=== PATIENT | male | born 1955 | race African-American/Black ===

== ENCOUNTER → 2024-03-24 13:47 | Outpatient (REF) | payer MEDICARE, OTHER, SELFPAY | LOC: RCS 13:47 | PROVIDERS: ATTENDING PHYSICIAN Family Medicine | DX: I10 Essential (primary) hypertension (principal) | CPT/HCPCS: 93005 ==

== ENCOUNTER → 2024-04-12 10:52 | Outpatient (REF) | payer OTHER, MEDICARE, SELFPAY | LOC: RAD 10:52 | PROVIDERS: ATTENDING PHYSICIAN Family Medicine | DX: R89.9 Unspecified abnormal finding in specimens from other organs, systems and tissues (principal) | CPT/HCPCS: 76536 ==

== ENCOUNTER 2024-06-11 00:35 | Emergency (ER) | payer OTHER, MEDICARE, SELFPAY ==
[2024-06-11 00:43] VITALS: BP 140/69
[2024-06-11 01:39] LABS: COVID-19 Antigen Negative (Negative)
--- NOTE | 2024-06-11 02:07 | ED.GENMED ---
History of Present Illness
General
Chief Complaint: Cold/Flu/URI Symptoms
Source: patient
Time Seen by Provider: 06/11/24 01:25
History of Present Illness
History of Present Illness:
This is a 68-year-old male who presents with fever and cough. Tylenol given prior to arrival. Patient arrives from [facility] house works reported that there is an influenza outbreak. On my evaluation patient reports a cough and bodyaches
Past History
Past History
ED Past Medical History: HTN, IDDM and Psychiatric (Bipolar disorder, schizophrenia)
Social History
Tobacco: Non-smoker
Alcohol: None
Drug: None
Living: senior living
Employment: Not employed
Family History
Family History: Unable to obtain (non verbal)
Phy Exam
Physical Exam
Physical Exam:
CONSTITUTIONAL Patient alert and oriented to person, place and time. Well-appearing. Vital signs reviewed.
HEAD atraumatic, normocephalic.
EYES eyelids normal to inspection, Extraocular muscles intact, Conjunctiva normal, Sclera normal.
NECK normal range of motion, Trachea midline, no jugular venous distention.
RESPIRATORY CHEST No respiratory distress noted, Chest expansion equal, Bilateral breath sounds clear.
CARDIOVASCULAR regular rate and rhythm, Heart sounds normal.
ABDOMEN abdomen nontender, Bowel sounds normal. No distention.
BACK normal inspection, no obvious deformities
UPPER EXTREMITY range of motion normal, Motor strength normal, no cyanosis, no edema.
LOWER EXTREMITY range of motion normal, Motor strength normal, no cyanosis, no edema.
NEURO Speech normal, No focal motor deficits, Cranial Nerves intact to screening exam.
SKIN skin warm, dry, and normal in color.
Course
Orders/Labs/Results
Orders:
Orders
06/11/24 01:16
COVID-19 Antigen Urgent
Source: Nasal Swab
Influenza A+B Rapid Molecular Urgent
[facility] Source: Nasal Swab
Specimen Description:
06/11/24 02:00
Ibuprofen [Motrin] 600 mg PO NOW STA
Oseltamivir Phosphate [Tamiflu] 75 mg PO NOW STA
06/11/24 02:08
Bedside Glucose- Treatment ONCE
Abnormal Lab Results
06/11/24
02:19
POC Glucose 108 H mg/dl
(70-99)
Vital Signs
Initial and Last Documented VS:
Initial Vital Signs
Temp Pulse Resp BP Pulse Ox
100.6 F H 75 18 140/69 98
06/11/24 00:43 06/11/24 00:43 06/11/24 00:43 06/11/24 00:43 06/11/24 00:43
Last Documented Vital Signs
Temp Pulse Resp BP Pulse Ox
101.2 F H 74 20 125/88 96
06/11/24 02:10 06/11/24 02:10 06/11/24 02:10 06/11/24 02:10 06/11/24 02:10
MDM/Problems Addressed
Differential Diagnosis Includes:
Pneumonia, COVID-19, upper respiratory infection
MDM/Problems Addressed:
Influenza
*Pulse Oximetry
Patient hypoxic: no
*[place] Interpretation
Rate: normal
Interpretation: normal
Rhythm: sinus
*Critical Care Note
Total Time (30-74mins, 75-104mins- exclusive of procedures): Not Applicable
Data Reviewed
Review of Other/Old Records Reveals: Labs (Prior labs reviewed from August 2022. Creatinine 1.1.)
Source: patient
Further Testing Considered But Not Given:
Consider chest x-ray but respiratory rate and pulse ox are normal
Patient Management
Escalation/DeEscalation of care consider admission/obs:
Influenza positive. Treat with Tamiflu. Recommended Tylenol and ibuprofen for fever control. Previous creatinine reviewed from August 2022. 1.1 creatinine
ED Attending Note
-
Portions of this chart may have been created with voice recognition software.� Occasional wrong word or��sound alike� substitutions may have occurred due to the inherent limitations of voice recognition software.
Discharge Plan
Departure
Patient Disposition: Home (Routine Discharge)
Date of Disposition: 06/11/24
Time of Disposition: 02:31
Patient with high blood pressure during this ER visit?: Yes
Discharge Problem:
Influenza A
Instructions: Flu
Prescriptions:
New
oseltamivir [Tamiflu] 75 mg capsule
75 mg PO BID Qty: 10 0RF
No Action
acetaminophen 325 mg tablet
650 mg PO Q6HPRN PRN (Reason: mild pain)
therapeutic multivitamin Tablet
1 tab PO DAILY
lorazepam [Ativan] 0.5 mg Tablet
0.5 mg PO Q8HPRN PRN (Reason: anxiety)
fluphenazine decanoate 25 mg/mL solution
75 mg IM Q2W
amlodipine 10 mg Tablet
10 mg PO DAILY
lithium carbonate 300 mg capsule
300 mg PO BID
Rx Instructions:
09/11/22 takes with 150 mg
Humulin R Regular U-100 Insuln 100 unit/mL Solution
0 unit SC ACHS
Patient Comments:
09/10/22 SLIDING SCALE -0-200= NO INSULIN 201-250 =2 UNITS 251-300 = 4UNITS 301-350 = 6UNITS 351-400 = 8UNITS
PATIENT SHOULD CALL MD IF ACCUCHECK <70 OR 400>
benztropine 1 mg tablet
1 mg PO DAILY
albuterol sulfate [ProAir HFA] 90 mcg/actuation Hfa Aerosol Inhaler
2 puff INHALATION R Q4HPRN PRN (Reason: sob)
fenofibrate nanocrystallized [Tricor] 145 mg Tablet
145 mg PO DAILY
metformin 500 mg Tablet
500 mg PO BID@0800,1700 30 Days Qty: 60 0RF
cholecalciferol (vitamin D3) [Vitamin D3] 10 mcg (400 unit) Tablet
400 unit PO DAILY 30 Days Qty: 30 0RF
lithium carbonate 150 mg capsule
150 mg PO DAILY Qty: 0 0RF
Patient Comments:
09/11/22 takes with 300 mg
lorazepam 0.5 mg Tablet
0.5 mg PO BID@1300,2000 7 Days Qty: 14 0RF
lorazepam 0.5 mg Tablet
0.5 mg PO Q6HPRN PRN (Reason: agitation) Qty: 0 0RF
insulin aspart U-100 [Novolog FlexPen U-100 Insulin] 100 unit/mL (3 mL) Insulin Pen
5 units SC AC Qty: 0 0RF
Insulin Glargine Lantus [Lantus] 5 UNITS
Subcutaneous Insulin Syringe [Syringe-Insulin] 0 UNIT
As Directed mls/hr SC HS
Ordered By: Wilfrido Giraldo MD
Last Taken: Unknown
atorvastatin 10 mg Tablet
10 mg PO DAILY
benztropine 2 mg Tablet
PO HS
fluphenazine HCl 5 mg Tablet
7.5 PO DAILY
Referrals:
Seven Arrington DO [Family Provider] -
Activity Restrictions/Additional Instructions:
Please drink plenty fluids. Use Tylenol and ibuprofen for fever control. Return immediately for difficulty breathing, vomiting, changes in mentation or any other concerns.
Interventions
Interventions:
*Risk Screen - Suicide Last Done: 06/11/24 00:46
*General Assessment Last Done: 06/11/24 00:46
*Neglect/Abuse Screening Last Done: 06/11/24 00:46
*ED COVID-19 Vaccine History Last Done: 06/11/24 00:47
ED- Pulmonary Assessment Last Done: 06/11/24 01:49
Discharge Date and Time
Print Language: TELUGU
[2024-06-11 02:10] VITALS: BP 125/88
[2024-06-11 02:21] LABS: Glucose - Point of Care 108 mg/dl (70-99)
[2024-06-11] MEDS: TAMIFLU 75 MG PO (02:23)
[2024-06-11] MEDS: MOTRIN 600 MG PO (02:24)
[2024-06-11 03:41] VITALS: BP 128/70
== END 2024-06-11 03:44 | disposition home or self-care (01) ==
LOC: EMR 00:35
PROVIDERS: Student in an Organized Health Care Education/Training Program; EMERGENCY PHYSICIAN Emergency Medicine; FAMILY PHYSICIAN Family Medicine
DX: J10.1 Influenza due to other identified influenza virus with other respiratory manifestations (principal); I10 Essential (primary) hypertension; Z11.52 Encounter for screening for COVID-19
CPT/HCPCS: 99283; 82962; 87502; 87811

== ENCOUNTER → 2024-10-05 13:31 | Outpatient (REF) | payer MEDICARE, OTHER, SELFPAY | LOC: EMG 13:31 | PROVIDERS: ATTENDING PHYSICIAN Family Medicine | DX: R20.0 Anesthesia of skin (principal); R20.2 Paresthesia of skin; G56.23 Lesion of ulnar nerve, bilateral upper limbs | CPT/HCPCS: 95886; 95912 ==

== ENCOUNTER 2025-03-11 09:56 | Outpatient (RCR) | payer MEDICARE, OTHER, SELFPAY | END 2025-03-11 23:59 | disposition home or self-care (01) | LOC: ROT 09:56 | PROVIDERS: ATTENDING PHYSICIAN Orthopaedic Surgery; FAMILY PHYSICIAN Family Medicine | DX: G56.23 Lesion of ulnar nerve, bilateral upper limbs (principal); Z73.6 Limitation of activities due to disability; M62.81 Muscle weakness (generalized) | CPT/HCPCS: 97010; 97110; 97140; 97167; 97535 ==

== ENCOUNTER 2025-03-31 12:30 | Outpatient (RCR) | payer MEDICARE, OTHER, SELFPAY | END 2025-03-31 23:59 | disposition home or self-care (01) | LOC: ROT 12:30 | PROVIDERS: ATTENDING PHYSICIAN Orthopaedic Surgery; FAMILY PHYSICIAN Family Medicine | DX: G56.23 Lesion of ulnar nerve, bilateral upper limbs (principal); Z73.6 Limitation of activities due to disability; M62.81 Muscle weakness (generalized) | CPT/HCPCS: 97010; 97110; 97140 ==

== ENCOUNTER → 2025-04-14 10:50 | Outpatient (REF) | payer MEDICARE, OTHER, SELFPAY | LOC: PAVMRI 10:50 | PROVIDERS: ATTENDING PHYSICIAN Nurse Practitioner; FAMILY PHYSICIAN Family Medicine | DX: M54.2 Cervicalgia (principal) | CPT/HCPCS: 72156; A9575 ==

== ENCOUNTER → 2025-04-26 13:14 | Outpatient (REF) | payer MEDICARE, OTHER, SELFPAY | LOC: RCS 13:14 | PROVIDERS: ATTENDING PHYSICIAN Family Medicine | DX: E11.9 Type 2 diabetes mellitus without complications (principal) | CPT/HCPCS: 93005 ==

== ENCOUNTER → 2025-05-31 09:25 | Outpatient (REF) | payer OTHER, SELFPAY | LOC: RAD 09:25 | PROVIDERS: ATTENDING PHYSICIAN Family Medicine | DX: E83.52 Hypercalcemia (principal); E72.20 Disorder of urea cycle metabolism, unspecified; R79.9 Abnormal finding of blood chemistry, unspecified | CPT/HCPCS: 76700 ==